=== PATIENT | female | born 1960 ===

== ENCOUNTER 2016-09-19 20:08 | Emergency (ER) | payer BC ==
[2016-09-19 21:28] VITALS: BP 154/76
[2016-09-19] MEDS ORDERED: Ciprofloxacin TAB* 500 MG PO ONE (21:47)
[2016-09-19] MEDS ORDERED: Ondansetron ODT TAB* 4 MG PO ONE (21:47)
--- NOTE | 2016-09-19 21:54 | UC ---
Abdominal Pain Female HPI - HPI Summary HPI Summary: Was in [facility] last week, got 3 explosive episodes of diarrhea 8 days ago. Took loperimide in order to fly home 7 days ago and had normal formed stool after that. Was feeling well until yesterday when she developed lots of watery brown stool, abdominal cramping, vomiting, dry-heaving, and fevers up above 101F. Denies blood in stool or focal abdominal pain. - History of Current Complaint Chief Complaint: UCGI Stated Complaint: FEVER Time Seen by Provider: 09/19/16 21:25 Hx Obtained From: Patient ?: No Onset/Duration: Sudden Onset, Lasting Days Timing: Constant Severity Initially: Moderate Severity Currently: Moderate Location: Diffuse Radiates: No Character: Cramping Aggravating Factor(s): Food Alleviating Factor(s): Nothing Associated Signs and Symptoms: Positive: Fever, Nausea, Vomiting, Diarrhea Allergies/Adverse Reactions: Allergies Allergy/AdvReac Type Severity Reaction Status Date / Time No Known Allergies Allergy Verified 09/19/16 21:28 PMH/Surg Hx/FS Hx/Imm Hx Endocrine History Of: Denies: Diabetes, Thyroid Disease Cardiovascular History Of: Denies: Cardiac Disorders, Hypertension Respiratory History Of: Denies: COPD, Asthma GI/ History Of: Denies: Ulcer - Surgical History Surgical History: Yes Surgery Procedure, Year, and Place: csection 1999 - Family History Known Family History: Positive: Hypertension, Other - aortic aneurysm - Social History Lives: With Family Alcohol Use: Occasionally Substance Use Type: None Smoking Status (MU): Never Smoked Tobacco Review of Systems Constitutional: Fever, Chills, Fatigue Skin: Negative Eyes: Negative ENT: Negative Respiratory: Negative Cardiovascular: Negative Gastrointestinal: Abdominal Pain, Vomiting, Diarrhea Genitourinary: Negative Motor: Negative Neurovascular: Negative Musculoskeletal: Negative Neurological: Negative Psychological: Negative All Other Systems Reviewed And Are Negative: Yes Physical Exam Triage Information Reviewed: Yes Appearance: Well-Appearing, No Pain Distress, Obese Vital Signs: Initial Vital Signs Temp 99.3 F 09/19/16 21:22 Pulse 89 09/19/16 21:22 Resp 18 09/19/16 21:22 BP 154/76 09/19/16 21:22 Pulse Ox 99 09/19/16 21:22 Vital Signs Reviewed: Yes Eye Exam: Normal Eyes: Positive: Conjunctiva Clear ENT Exam: Normal ENT: Positive: Normal ENT inspection, Hearing grossly normal, Pharynx normal, TMs normal Dental Exam: Normal Neck exam: Normal Neck: Positive: Supple, Nontender, No Lymphadenopathy Respiratory Exam: Normal Respiratory: Positive: Chest non-tender, Lungs clear, Normal breath sounds, No respiratory distress, No accessory muscle use Cardiovascular Exam: Normal Cardiovascular: Positive: RRR, No Murmur Abdomen Description: Positive: Nontender, No Organomegaly, Soft. Negative: CVA Tenderness (R), CVA Tenderness (L), Guarding, McBurney's Point Tenderness, Peritoneal Signs Bowel Sounds: Positive: Present Musculoskeletal Exam: Normal Neurological Exam: Normal Neurological: Positive: Alert Psychological Exam: Normal Skin Exam: Normal Abd Pain Female Course/Dx - Differential Dx/Diagnosis Provider Diagnoses: Traveler's diarrhea Discharge - Discharge Plan Condition: Stable Disposition: HOME Prescriptions: Ciprofloxacin TAB* [Cipro 500 MG TAB*] 500 mg PO BID #5 tab Patient Education Materials: Traveler's Diarrhea (ED) Referrals: No Primary Care Phys,NOPCP [Primary Care Provider] - Additional Instructions: If you do not see clear improvement with reduction of fever and stool frequency within 48 hours, please return here or see your primary care provider.
== END 2016-09-19 22:11 | disposition home or self-care (01) ==
LOC: UCEAST 20:08
DX: R19.7 Diarrhea, unspecified (principal); R50.9 Fever, unspecified; R11.2 Nausea with vomiting, unspecified; E66.9 Obesity, unspecified
CPT/HCPCS: 99212; A9270-GY; G0463

== ENCOUNTER 2016-09-29 07:51 | Emergency (ER) | payer BC ==
[2016-09-29 08:18] VITALS: BP 149/93
--- NOTE | 2016-09-29 10:11 | UC ---
IGary,Carlos, scribed for Arlen Lara MD on 09/29/16 at 0828 . Abdominal Pain Female HPI - HPI Summary HPI Summary: This 56 y/o female presents to [facility] for persistent traveler's diarrhea since . Pt reports that she was coming back from [facility] 09/10/16 when she started to have watery diarrhea. Positive decreased appetite, increased bowel sound, and weight loss. Current body weight is 209.2 lb. Negative abd pain. She also reports intermittent fever to 101 and n/v that have now resolved. Pt initially controlled diarrhea with Imodium in order to travel home but only took it the one day. Food intake makes diarrhea worse. Pt was previously seen at on 09/19/2016 and went home with Cipro. No stool sample was obtained at that time. Pt came back today when diarrhea persisted after finishing the Cipro. There is no blood in the diarrhea and it is "pure water". PSHx includes . Plan of care involving stool sample was discussed, and pt is agreeable and would like to try to provide the sample in this visit. - History of Current Complaint Chief Complaint: UCAbdominalPain Stated Complaint: [facility]HE[facility] Time Seen by Provider: 09/29/16 08:27 Hx Obtained From: Patient, Medical Records Onset/Duration: Sudden Onset, Lasting Weeks, Still Present Timing: Constant Severity Initially: Moderate Severity Currently: Moderate Pain Intensity: 0 Pain Scale Used: 0-10 Numeric Location: Other - None Radiates: No Character: Not Applicable Aggravating Factor(s): Food Alleviating Factor(s): Medications - Cipro and imodium Associated Signs and Symptoms: Positive: Fever - intermittent to 101, currently resolved, Decreased Appetite, Nausea, Vomiting, Diarrhea Allergies/Adverse Reactions: Allergies Allergy/AdvReac Type Severity Reaction Status Date / Time No Known Allergies Allergy Verified 09/29/16 07:56 PMH/Surg Hx/FS Hx/Imm Hx Previously Healthy: Yes Endocrine History Of: Denies: Diabetes, Thyroid Disease Cardiovascular History Of: Denies: Cardiac Disorders, Hypertension Respiratory History Of: Denies: COPD, Asthma GI/ History Of: Denies: Ulcer - Surgical History Surgical History: Yes Surgery Procedure, Year, and Place: csection 1999 - Family History Known Family History: Positive: Hypertension, Other - aortic aneurysm - Social History Alcohol Use: Occasionally Alcohol Amount: Has not had any alcohol since trip Substance Use Type: None Smoking Status (MU): Never Smoked Tobacco Review of Systems Constitutional: Negative Skin: Negative Eyes: Negative ENT: Negative Respiratory: Negative Cardiovascular: Negative Gastrointestinal: Vomiting - Currently resolved, Diarrhea - watery, Other - Increased bowel sounds. Genitourinary: Negative Motor: Negative Neurovascular: Negative Musculoskeletal: Negative Neurological: Negative Psychological: Negative All Other Systems Reviewed And Are Negative: Yes Physical Exam Triage Information Reviewed: Yes Appearance: No Pain Distress, Well-Nourished, Ill-Appearing Vital Signs: Initial Vital Signs Temp 98.6 F 09/29/16 07:57 Pulse 81 09/29/16 07:57 Resp 18 09/29/16 07:57 BP 149/93 09/29/16 07:57 Pulse Ox 96 09/29/16 07:57 Vital Signs Reviewed: Yes Eyes: Positive: Conjunctiva Clear ENT: Positive: Normal ENT inspection, Hearing grossly normal. Negative: Muffled /hoarse voice Neck: Positive: Supple, Nontender Respiratory: Positive: Lungs clear, Normal breath sounds, No respiratory distress Cardiovascular: Positive: RRR, No Murmur, Pulses Normal, Brisk Capillary Refill Abdomen Description: Positive: Nontender, No Organomegaly, Soft. Negative: Distended, Guarding, Hernia @, Hepatomegaly, McBurney's Point Tenderness, Peritoneal Signs, Pulsatile Mass, Splenomegaly Bowel Sounds: Positive: Hyperactive Musculoskeletal: Positive: Strength Intact. Negative: Edema @ Neurological: Positive: Alert, Muscle Tone Normal Psychological Exam: Normal Skin Exam: Normal Abd Pain Female Course/Dx - Course Course Of Treatment: Pt with hx travel to [facility], treated with Cipro empirically, now still with diarrhea. Will obtain stool sample, and base treatment on those results. - Differential Dx/Diagnosis Differential Diagnosis: Diverticulitis, Irritable Bowel Syndrome, Other - infectious colitis Provider Diagnoses: 1) traveler's diarrhea. 2) elevated BP without dx of HTN Discharge - Discharge Plan Condition: Stable Disposition: HOME Patient Education Materials: Traveler's Diarrhea (ED), Acute Diarrhea (ED) Referrals: [facility] REFERRAL [Outside] - 2 Days Additional Instructions: Please avoid diary product and fatty food until your diarrhea clears. Plain yogurt is recommended in place of diary. Probiotics are strongly recommended in your diet. No fruit except banana. The documentation as recorded by the Gary boudreaux Soohyun accurately reflects the service I personally performed and the decisions made by me, Arlen Lara MD.
== END 2016-09-29 09:11 | disposition home or self-care (01) ==
LOC: UCEAST 07:51
DX: R19.7 Diarrhea, unspecified (principal); R03.0 Elevated blood-pressure reading, without diagnosis of hypertension
CPT/HCPCS: 82272; 83630; 87045; 87046; 87177; 87209; 87328; 87329; 87425; 87493; 87899; 99211; G0463